=== PATIENT | male | born 1970 | race Two or more races ===

== ENCOUNTER 2017-04-19 00:05 | Emergency (ER) | payer MEDICAID ==
[~2017-04-19] VITALS: Ht 175.3 cm; Wt 104.3 kg
--- NOTE | 2017-04-19 00:40 | NUR ---
BIBSELF, AMBULATORY TO ER BED 7 C/O "HEADACHE AND FEELING NAUSEOUS SINCE EYSTERDAY" PT AOX3 RR EVEN AND UNLABORED. NO SOB NOTED. NAD NOTED. NO NVD AT THIS TIME. PT GOWNED AND PLACED ON MONTIOR. WAITING FOR MD CORNEJO.
--- NOTE | 2017-04-19 00:45 | NUR ---
JOSE CAREY AT BEDSIDE FOR EVAL.
[2017-04-19] MEDS ORDERED: diphenhydrAMINE HCL 50 MG/ML VIAL IV ONE (01:00)
[2017-04-19] MEDS ORDERED: MORPHINE SULFATE INJ 2 MG/ML DISP.SYRIN IV ONE (01:00)
[2017-04-19] MEDS ORDERED: METOCLOPRAMIDE HCL 10 MG/2 ML VIAL IV ONE (01:00)
[2017-04-19] MEDS ORDERED: IV NS 0.9% 1,000 ML BAG IV ONE (01:00)
[2017-04-19] MEDS ORDERED: ONDANSETRON HCL/PF 4 MG/2 ML VIAL IVP ONE (01:00)
[2017-04-19] MEDS ORDERED: diphenhydrAMINE HCL 50 MG/ML VIAL ONE (01:17)
[2017-04-19] MEDS ORDERED: ONDANSETRON HCL/PF 4 MG/2 ML VIAL ONE (01:17)
[2017-04-19] MEDS ORDERED: METOCLOPRAMIDE HCL 10 MG/2 ML VIAL ONE (01:18)
[2017-04-19] MEDS ORDERED: MORPHINE SULFATE INJ 2 MG/ML DISP.SYRIN ONE (01:18)
--- NOTE | 2017-04-19 02:00 | NUR ---
PT RETURNED FROM CT
--- NOTE | 2017-04-19 02:32 | NUR ---
IV removed. Catheter intact and site benign. Pressure and 4x4 applied to site. No bleeding noted. Patient discharged to home in stable condition. Written and verbal after care instructions given. Patient verbalizes understanding of instruction. ambulatory with a steady gait. instructed not to drive. pt verbalize understanding. accompanied by
[2017-04-19 02:34] VITALS: BP 138/72
== END 2017-04-19 02:34 | disposition home or self-care (01) ==
LOC: ER 00:05
DX: R51 Headache (principal); F17.200 Nicotine dependence, unspecified, uncomplicated
CPT/HCPCS: 70450; 96361; 96374; 96375; 99284; A4606; J1200; J2270; J2405; J2765; J7030; Z7610

== ENCOUNTER 2019-01-06 02:56 | Emergency (ER) | payer MEDICAID, OTHER ==
[~2019-01-06] VITALS: Ht 182.9 cm; Wt 103.9 kg
--- NOTE | 2019-01-06 03:19 | NUR ---
BIBF. C/O "HAD SOME COFFEE TODAY, FELT ITCHY AFTER. -SOB -N/V -DIZZY" AOX4. AMBULATORY. VSS. -SOB NOTED.
[2019-01-06] MEDS ORDERED: diphenhydrAMINE HCL 50 MG CAPSULE ONE (03:27)
[2019-01-06] MEDS ORDERED: predniSONE 20 MG TABLET ONE (03:27)
[2019-01-06] MEDS ORDERED: predniSONE 20 MG TABLET PO ONE (03:30)
[2019-01-06] MEDS ORDERED: diphenhydrAMINE HCL 50 MG CAPSULE PO ONE (03:30)
[2019-01-06 03:39] VITALS: BP 137/88
== END 2019-01-06 03:39 | disposition home or self-care (01) ==
LOC: ER 03:03
DX: T78.1XXA Other adverse food reactions, not elsewhere classified, initial encounter (principal); L27.2 Dermatitis due to ingested food; F17.200 Nicotine dependence, unspecified, uncomplicated; Z98.890 Other specified postprocedural states; X58.XXXA Exposure to other specified factors, initial encounter
CPT/HCPCS: 99283; J7512; Q0163